=== PATIENT | female | born 1975 | race Caucasian/White ===

== ENCOUNTER → 2016-07-31 | Outpatient (CLI) | payer OTHER ==
--- NOTE | 2016-07-31 14:04 | REP ---
CT THORACIC SPINE WITHOUT CONTRAST: HISTORY: Spondylosis. There is no acute fracture or subluxation. There is no definite disc bulge or herniation. The spinal canal and the neural foramina are patent. The intervertebral discs are normal in height. Anterior osteophytes are present in the mid and lower thoracic spine. There is scoliosis of the upper thoracic spine convex to the left and mid and lower thoracic spine convex to the right. IMPRESSION: Degenerative change as described above. Signed by Phil Gupta MD 07/31/2016 02:20 P
--- NOTE | 2016-07-31 15:12 | REP ---
CT LUMBAR SPINE WITHOUT CONTRAST: HISTORY: Spondylosis. There is no disc bulge or herniation at the L1-2, L2-3, and L5-S1 levels. There is hypertrophy of the posterior articulating facets at the L5-S1 level. The nerves exit the neural foramina without compression. A diffuse disc bulge is present at the L3-4 level. There is minimal compression of the thecal sac. The L3 nerves exit the neural foramina without compression. A diffuse disc bulge is present at the L4-5 level. There is minimal compression of the thecal sac. The L4 nerves exit the neural foramina without compression. A 1 cm focus of decreased density is present in the right kidney. This most likely represents an angiomyolipoma or lipoma. IMPRESSION: 1. Diffuse disc bulges at the L3-4 and L4-5 levels with minimal thecal sac compression. 2. There is a 1 cm focus of decreased density in the right kidney that most likely represents an angiomyolipoma or lipoma. Ultrasound may be helpful for further evaluation. Signed by Phil Gupta MD 07/31/2016 03:17 P
--- NOTE | 2016-07-31 15:14 | REP ---
CT cervical spine without contrast, 07/31/2016: Indication: Cervical spondylosis. Comparison: None. Findings: There is mild reversal of cervical lordosis. There is no acute cervical spine fracture or prevertebral soft tissue swelling. Small subchondral cystic changes are seen in the tip of the dens, likely nonspecific arthritic changes. Moderate disc space narrowing is noted C6-7 with moderate anterior bridging marginal osteophytes. There is small diffuse bulging disc/osteophyte complex at this level. The AP dimension of thecal sac approximately 8.3 mm consistent with mild to moderate central canal stenosis. There is no significant foraminal narrowing. There are multiple subcentimeter nonspecific, anterior and posterior cervical chain nodes bilaterally. These are likely reactive in etiology. There is evidence of previous bilateral mastoidectomies. Small amount of soft tissue or granulation tissue seen in the posterior aspect of the left mastoidectomy site. Small amount of fluid. Impression: Mild reversal of cervical lordosis with moderate degenerative disc changes at C6-7. There is small diffuse bulging disc at this level with mild to moderate central canal stenosis. AP dimension of thecal sac is approximately of 8.3 mm AP dimension. No significant foraminal stenosis. No acute fracture or prevertebral soft tissue swelling. Reversal of cervical lordosis. Multiple sub cm nodes in the submandibular, anterior and posterior cervical chains, likely reactive. Clinical follow-up recommended. Previous bilateral mastoidectomies. Soft tissue is seen in the posterior aspect of the left mastoidectomy site. Signed by India Freeman MD 07/31/2016 07:07 P
== END | disposition home or self-care (01) ==
LOC: M RAD 13:10
PROVIDERS: ATTEND Neurological Surgery
DX: M47.892 Other spondylosis, cervical region (principal); M43.04 Spondylolysis, thoracic region; M47.896 Other spondylosis, lumbar region

== ENCOUNTER → 2016-08-09 | Outpatient (CLI) | payer OTHER ==
--- NOTE | 2016-08-09 18:16 | REP ---
Lumbar spine seven views including lateral views with flexion and extension. Comparison is the lumbar spine CT dated 07/31/2016. Vertebral body heights and alignment are normal. There is mild degenerative disc disease at L4-5 and L5 S1. There is no spondylolysis. There is no spondylolisthesis. There is no listhesis on the lateral flexion or extension views. The pedicles, facets and sacroiliac articulations are unremarkable. There are surgical clips in the pelvis bilaterally. Impression: Mild intervertebral degenerative disc disease at L4-5 and L5- S1. No listhesis. Signed by Tien Foote MD 08/09/2016 06:08 P
--- NOTE | 2016-08-09 18:19 | REP ---
Cervical spine seven views: Comparison is the MRI dated 07/31/2016. Vertebral body heights and alignment are normal. There is disc space narrowing and osteophytic formation at C 06/07, compatible with degenerative disc disease. Disc spaces are otherwise unremarkable. Prevertebral soft tissues are normal. Facets are normally aligned. There is no listhesis on the lateral views with flexion and extension. The odontoid view is unremarkable. There is no bony foraminal encroachment. Impression: C6-7 degenerative disc disease. Signed by Tien Foote MD 08/09/2016 06:10 P
== END | disposition home or self-care (01) ==
LOC: M RAD 14:04
PROVIDERS: ATTEND Neurological Surgery
DX: M47.892 Other spondylosis, cervical region (principal); M47.896 Other spondylosis, lumbar region; M50.923 Unspecified cervical disc disorder at C6-C7 level; M51.86 Other intervertebral disc disorders, lumbar region; M51.87 Other intervertebral disc disorders, lumbosacral region

== ENCOUNTER → 2016-09-15 | Outpatient (CLI) | payer OTHER | LOC: M LAB 11:59 | PROVIDERS: ATTEND Neurological Surgery | DX: E66.9 Obesity, unspecified (principal) ==

== ENCOUNTER → 2016-09-25 | Outpatient (CLI) | payer OTHER ==
--- NOTE | 2016-10-02 00:23 | ECWPNPC ---
PATIENT NAME: DERECK ROACH : 1975 GENDER: FEMALE VISIT DATE: 09/25/2016 DISCHARGE DATE: 09/25/16 1205 VISIT LOCKED DATE TIME: PHYSICIAN: JOSE ELIAS REYNAGA RESOURCE: JOSE ELIAS REYNAGA REASON FOR APPOINTMENT 1. NECK/BACK HISTORY OF PRESENT ILLNESS NEW PATIENT CONSULT: 41 Y/O FEMALE REFERRED BY FOR EVALUATION OF NECK AND LOW BACK PAIN.PAIN BEGAN APROXIMATLEY 1 1/2 YEARS AGO WITHOUT PRECIPITATING EVENT.RATING PAIN VAS 3/10.REPORTS DIFFICULTY SLEEPING AT NIGHT DUE TO PAIN.PAIN IS LOCATED IN NECK AND RADIATES INTO THORACIC SPINE.DENIES LUMBAR PAIN.DENIES RADICULAR SYMPTOMS.PAIN IS AGGREVATED BY LIGHT PRESSURE ON NECK.PAIN RELIEVED BY REST AND REPOSITION. WHEN DID YOUR PAIN FIRST START? . BRIEFLY DESCRIBE HOW YOUR PAIN STARTED? . HOW DOES YOUR PAIN CHANGE WITH TIME? . DOES YOUR PAIN AWAKEN YOU FROM SLEEP? . HOW MANY HOURS OF SLEEP DO YOU NORMALLY GET? . ANY DIAGNOSTIC TESTING? . FACILITY WHERE TESTS WERE DONE? ____. PAIN TREATMENT TREATMENT YES CANCER HAVE YOU EVER HAD ANY TYPE OF CANCER?NO NO. PAIN SCREENING: PATIENT HAS A COMPLAINT OF ACUTE OR CHRONIC PAIN YES FALL RISK SCREENING: SCREENING :NO FALLS IN THE PAST YEAR TRISTAN INVENTORY: QUESTIONNAIRE ASSESSEDTBD SCORE VALUE CALCULATED TBD CURRENT MEDICATIONS TAKING LOSARTAN POTASSIUM 100 MG TABLET 1 TABLET ORALLY ONCE A DAY TAKING VITAMIN D-3 5000 UNIT TABLET ORALLY MEDICATION LIST REVIEWED AND RECONCILED WITH THE PATIENT PAST MEDICAL HISTORY ESSENTIAL HTN CERVICAL SPONDYLOSIS LUMBAR SPONDYLOSIS SACROILITIS HEARING LOSS BILATERALLY WITH LEFT SIDED BAHA IMPLANT ALLERGIES N.K.D.A. SURGICAL HISTORY TUBAL LIGATION 2000 HYSTERECTOMY 2011 BAHA LEFT SIDED IMPLANT 2013 T&A FAMILY HISTORY 1 SON(S) , 1 DAUGHTER(S) . SOCIAL HISTORY GENERAL: TOBACCO USE ARE YOU A:NONSMOKER ALCOHOL SCREENING POINTS0 INTERPRETATIONNEGATIVE RECREATIONAL DRUG USE DRUG USE?NO CAFFEINE CAFFEINE USE?YES OCCASIONAL SODA OCCUPATION: HOUSEWIFE. DIET: REGULAR. EXERCISE: NONE. MARITAL STATUS: . OTHERS AT HOME: SPOUSE, CHILDREN. VOODOO: NONE AT THIS TIME. LEARNING BARRIERS / SPECIAL NEEDS HEARING IMPAIRED?YES : HAS LEFT SIDE BAHA IMPLANT TO FACILITATE HEARING VISION IMPAIRED?YES :CORRECTIVE LENSES LEARNING PREFERENCES?YES :HANDOUTS, DEMONSTRATION/VERBAL INSTRUCTION MEDICATION ABUSE NO PSYCHOLOGICAL HX TREATMENTNO PAIN CLINIC PFS, CLERGY, PUBLIC HEALTH REFERRALS PFS REFERRAL NEEDED?NO CLERGY REFERRAL NEEDED?NO PUBLIC HEALTH REFERRAL NEEDED?NO WAS THE PROVIDER NOTIFIED OF ANY PERTINENT INFO?NO PATIENT: ____. ADVANCED DIRECTIVES HEALTH CARE PROXY?NO POWER OF NUTS AND BOLTS ASSEMBLER?NO DOMESTIC VIOLENCE: NONE. HOSPITALIZATION/MAJOR DIAGNOSTIC PROCEDURE FOR ABOVE SURGERIES REVIEW OF SYSTEMS CONSTITUTIONAL: ANY CHANGE IN YOUR MEDICAL CONDITION? NO . CHILLS NO . FEVER NO . INFECTION: DO YOU HAVE NEW INFECTIONS? NO . DO YOU HAVE HISTORY OF MRSA? NO . MUSCULOSKELETAL: ANY NEW PATTERNS OF PAIN OR NUMBNESS? YES PT NOTES NECK AND MID-LOW BACK DISCOMFORT SINCE 03/04. DENIES TRAUMA. . SYTEMIC LUPUS NO . GASTROENTEROLOGY: ANY NEW CHANGE IN BOWEL CONTROL? NO . BARRETTS ESOPHAGUS NO . CIRRHOSIS NO . HEPATITIS NO . LIVER FAILURE NO . ACID REFLUX NO . UNEXPLAINED WEIGHT LOSS NO . GENITOURINARY: ANY NEW CHANGE IN BLADDER CONTROL? NO . IS THERE A CHANCE YOU COULD BE ? NO . HEMATOLOGY/LYMPH: DO YOU TAKE ANY BLOOD THINNERS? (FOR EXAMPLE- COUMADIN, PLAVIX, AGGRENOX, PLATEL, PRADAXA, OR XARELTO) NO . WHEN WAS YOUR LAST DOSE? DATE: TIME: . LOW PLATELET COUNT NO . SICKLE CELL DISEASE NO . VON WILLIEBRANDS NO . FACTOR V LEIDEN NO . THALLASEMIA NO . ANEMIA NO . EASY BRUISING NO . NEUROLOGY: HAVE YOU FALLEN IN THE PAST 6 MONTHS? NO . ANY NEW EXTREMITY NUMBNESS OR WEAKNESS? NO . HEAD INJURY NO . DEMENTIA NO . CEREBRAL PALSY NO . MULTIPLE SCLEROSIS NO . DIZZINESS NO . HEADACHE ADMITS, THROBBING, OCCIPITAL, INTERMITTENT . STROKES NO . VERTIGO NO . CARDIOLOGY: DO YOU HAVE A PACEMAKER OR DEFIBRILLATOR? NO . ANGINA NO . HEART ATTACK NO . HEART SURGERY NO . CONGESTIVE HEART FAILURE/FLUID OVERLOAD NO . CHEST PAIN NO . HIGH BLOOD PRESSURE ON MEDICATION(S) . IRREGULAR HEART BEAT NO . RESPIRATORY: HAVE YOU BEEN SICK IN THE PAST WEEK? NO . FEVER NO . FLU LIKE SYMPTOMS? NO . CPAP NO . BYPAP NO . ASTHMA NO . EMPHYSEMA NO . CHRONIC LUNG DISEASES NO . SHORTNESS OF BREATH ON EXERTION NO . DO YOU USE ANY TYPE OF TOBACCO (SMOKE, SMOKELESS, CHEW)? NO . COUGH NO . SNORING YES . INTEGUMENTARY: DO YOU HAVE ANY RASHES OR OPEN SORES? NO . ALLERGIC/IMMUNO: ARE YOU ALLERGIC TO SHELLFISH OR IV DYE? NO . ANY NEW ALLERGIES? NO . PSYCHIATRIC: DO YOU HAVE THOUGHTS OF HURTING YOURSELF OR SOMEONE ELSE? NO . ARE YOU ABUSED, NEGLECTED, OR IN AN UNSAFE ENVIRONMENT? NO . ENDOCRINOLOGY: ARE YOU DIABETIC? NO . THYROID DISORDER NO . OTHER: DO YOU NEED ANY PRESCRIPTIONS? NO . IF YES, PLEASE LIST: ____ . ANY NEW PROBLEMS WITH YOUR MEDICATIONS? NO . WHEN DID YOU LAST EAT? ____ . WHEN DID YOU LAST DRINK? ____ . WHAT DID YOU LAST DRINK? ____ . NAME OF PERSON DRIVING YOU HOME? ____ . DO YOU HAVE ANY OTHER QUESTIONS OR CONCERNS NO . REVIEWED BY: PROVIDER: JOSE ELIAS LOWE . VITAL SIGNS WT 211.6 LBS, HT 64 IN, BMI 36.32 INDEX, BP 157/84 MM HG, HR 58 /MIN, RR 16 /MIN, TEMP 97.0 F, OXYGEN SAT % 100%, NA INITIALS SC 11:06, REVIEWED BY: MLF. EXAMINATION GENERAL EXAMINATION: GENERAL APPEARANCE:NO ACUTE DISTRESS.. NECK:NO LYMPHADENOPATHY. LUNGS:LUNG SOUNDS ARE CLEAR/RESP. NON LABORED. HEART:S1/S2 NORMAL RATE /RHYTHM. ABDOMEN:SOFT, NON-TENDER, NO ORGANOMEGALY, BOWEL SOUNDS ARE NORMAL. CERVICAL SPINE/NECK: RANGE OF MOTION OF NECK:LIMITED IN ALL DIRECTIONS.. SENSATIONS:NORMAL BILATERALLY. MOTOR STRENGTH:NORMAL. VERTEBRAL SPINE TENDERNESS:TENDERNESS WITH PALPATION OF CERVICAL AXIS AND CERVICAL PARASPINALS.. MYOFASCIAL TRIGGER POINTS:BILAT. TRAPEZIUS.. 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 IT IS NOT A COPY OF THE [employer] [facility] [place] PROGRESS NOTE. VIRIDIANA
== END ==
LOC: M PAIN 11:20
PROVIDERS: ATTEND Nurse Practitioner Family
DX: G89.29 Other chronic pain (principal); M47.812 Spondylosis without myelopathy or radiculopathy, cervical region; M79.1 Myalgia; I10 Essential (primary) hypertension; R06.83 Snoring; Z79.899 Other long term (current) drug therapy; Z96.21 Cochlear implant status

== ENCOUNTER → 2016-11-20 | Outpatient (CLI) | payer OTHER ==
--- NOTE | 2016-12-04 00:53 | ECWPNPC ---
PATIENT NAME: DERECK ROACH : 1975 GENDER: FEMALE VISIT DATE: 11/20/2016 DISCHARGE DATE: 11/20/16 1107 VISIT LOCKED DATE TIME: PHYSICIAN: JOSE ELIAS REYNAGA RESOURCE: JOS EELIAS REYNAGA REASON FOR APPOINTMENT 1. NECK AND BACK HISTORY OF PRESENT ILLNESS HISTORY OF PRESENT ILLNESS: HERE FOR F/U AND MANAGEMENT OF CHRONIC NECK AND LBP.ATTENDED PT BUT FINDS IT INEFFECTIVE.DISCUSSED MEDICATION AND TREATMENT OPTIONS.DESCRIBES PAIN INTERMITTENT.RATING PAIN VAS 2/10.HAVING SOME ISSUES WITH BILATERAL LEG SWELLING AND EDEMA.FOLLOWING WITH PRIMARY . PAIN THE PATIENT DESCRIBES THE PAIN... FALL RISK SCREENING: SCREENING :NO FALLS IN THE PAST YEAR CURRENT MEDICATIONS TAKING LOSARTAN POTASSIUM 100 MG TABLET 1 TABLET ORALLY ONCE A DAY TAKING VITAMIN D-3 5000 UNIT TABLET ORALLY MEDICATION LIST REVIEWED AND RECONCILED WITH THE PATIENT PAST MEDICAL HISTORY ESSENTIAL HTN CERVICAL SPONDYLOSIS LUMBAR SPONDYLOSIS SACROILITIS HEARING LOSS BILATERALLY WITH LEFT SIDED BAHA IMPLANT ALLERGIES N.K.D.A. REVIEW OF SYSTEMS CONSTITUTIONAL: ANY CHANGE IN YOUR MEDICAL CONDITION? NO . CHILLS NO . FEVER NO . INFECTION: DO YOU HAVE NEW INFECTIONS? NO . DO YOU HAVE HISTORY OF MRSA? NO . MUSCULOSKELETAL: ANY NEW PATTERNS OF PAIN OR NUMBNESS? NO . GASTROENTEROLOGY: ANY NEW CHANGE IN BOWEL CONTROL? NO . GENITOURINARY: ANY NEW CHANGE IN BLADDER CONTROL? NO . IS THERE A CHANCE YOU COULD BE ? NO . HEMATOLOGY/LYMPH: DO YOU TAKE ANY BLOOD THINNERS? (FOR EXAMPLE- COUMADIN, PLAVIX, AGGRENOX, PLATEL, PRADAXA, OR XARELTO) NO . WHEN WAS YOUR LAST DOSE? DATE: TIME: . NEUROLOGY: HAVE YOU FALLEN IN THE PAST 6 MONTHS? NO . ANY NEW EXTREMITY NUMBNESS OR WEAKNESS? NO . CARDIOLOGY: DO YOU HAVE A PACEMAKER OR DEFIBRILLATOR? NO . RESPIRATORY: HAVE YOU BEEN SICK IN THE PAST WEEK? NO . FEVER NO . FLU LIKE SYMPTOMS? NO . COUGH NO . INTEGUMENTARY: DO YOU HAVE ANY RASHES OR OPEN SORES? NO . ALLERGIC/IMMUNO: ARE YOU ALLERGIC TO SHELLFISH OR IV DYE? NO . ANY NEW ALLERGIES? NO . PSYCHIATRIC: DO YOU HAVE THOUGHTS OF HURTING YOURSELF OR SOMEONE ELSE? NO . ARE YOU ABUSED, NEGLECTED, OR IN AN UNSAFE ENVIRONMENT? NO . ENDOCRINOLOGY: ARE YOU DIABETIC? NO . OTHER: DO YOU NEED ANY PRESCRIPTIONS? NO . IF YES, PLEASE LIST: ____ . ANY NEW PROBLEMS WITH YOUR MEDICATIONS? NO . WHEN DID YOU LAST EAT? ____ . WHEN DID YOU LAST DRINK? ____ . WHAT DID YOU LAST DRINK? ____ . NAME OF PERSON DRIVING YOU HOME? ____ . DO YOU HAVE ANY OTHER QUESTIONS OR CONCERNS DOESN'T FEEL PT IS HELPING HER MUCH . REVIEWED BY: PROVIDER: JOSE ELIAS LOWE . VITAL SIGNS WT 212 LBS, HT 64 IN, BMI 36.39 INDEX, BP 140/73 MM HG, HR 68 /MIN, RR 16 /MIN, TEMP 98.5 F, OXYGEN SAT % 98%, NA INITIALS SC 10:15, REVIEWED BY: AD. EXAMINATION GENERAL EXAMINATION: GENERAL APPEARANCE:NO ACUTE DISTRESS.. NECK:NO LYMPHADENOPATHY. LUNGS:LUNG SOUNDS ARE CLEAR/RESP. NON LABORED. HEART:S1/S2 NORMAL RATE /RHYTHM. ABDOMEN:SOFT, NON-TENDER, NO ORGANOMEGALY, BOWEL SOUNDS ARE NORMAL. CERVICAL SPINE/NECK: RANGE OF MOTION OF NECK:LIMITED IN ALL DIRECTIONS.. SENSATIONS:NORMAL BILATERALLY. MOTOR STRENGTH:NORMAL. VERTEBRAL SPINE TENDERNESS:TENDERNESS WITH PALPATION OF CERVICAL AXIS AND CERVICAL PARASPINALS.. MYOFASCIAL TRIGGER POINTS:BILAT. TRAPEZIUS.. ASSESSMENTS SPONDYLOSIS OF CERVICAL REGION WITHOUT MYELOPATHY OR RADICULOPATHY - M47.812 (PRIMARY) MYALGIA - M79.1 FACET ARTHROPATHY, LUMBOSACRAL - M12.88 TREATMENT SPONDYLOSIS OF CERVICAL REGION WITHOUT MYELOPATHY OR RADICULOPATHY START TRAMADOL HCL TABLET, 50 MG, 1/2, ORALLY, BEFORE BEDTIME, 30 DAY(S), 15, REFILLS 1 START IBUPROFEN TABLET, 600 MG, 1 TABLET WITH FOOD OR MILK, ORALLY, BEFORE BEDTIME, 30 DAY(S), 30, REFILLS 1 NOTES: PATIENT WAS ADVISED TO START A WALKING PROGRAM TO STRENGTHEN LUMBAR PARASPINAL MUSCLES AND IMPROVE MOBILITY. THEY WERE ADVISED THAT THIS WILL IMPROVE WEIGHT LOSS AND ALSO DEPRESSION/FIBROMYALGIA SYMPTOMS. ADVISED TO WALK 10 MINUTES EVERY OTHER DAY ON A FLAT SURFACE. EMPHASIZED THE IMPORTANCE OF DOING THIS CONSISTANTLY AND NOT SPORATICALLY TO AVOID INJURY. STRONG ADVISED NOT TO DO MORE THAN 10 MINUTES EVERY OTHER DAY FOR THE FIRST 4 WEEKS. PREVENTIVE MEDICINE PAIN CLINIC TEACHING: MEDICATIONS PRINTED INFORMATION ON TRAMADOL AND IBUPROFEN GIVEN TO AND REVIEWED WITH PT AND SHE VERBALIZED UNDERSTANDING. AD. PROCEDURE CODES FA211 ESTABILISHED PATIENT [facility] CHARGE DISPOSITION & COMMUNICATION FOLLOW UP 6 WEEKS ELECTRONICALLY SIGNED BY CHRISSY VELASQUEZ ON 12/03/2016 AT 04:51 PM EDT DISCLAIMER : THIS IS A VISIT SUMMARY EXTRACTED FROM THE [employer] CHART. IT IS NOT A COPY OF THE [employer] PROGRESS NOTE. VIRIDIANA
== END ==
LOC: M PAIN 10:00
PROVIDERS: ATTEND Nurse Practitioner Family
DX: G89.29 Other chronic pain (principal); M47.812 Spondylosis without myelopathy or radiculopathy, cervical region; M79.1 Myalgia; M12.88 Other specific arthropathies, not elsewhere classified, other specified site; I10 Essential (primary) hypertension; H91.90 Unspecified hearing loss, unspecified ear; Z79.899 Other long term (current) drug therapy; Z96.21 Cochlear implant status

== ENCOUNTER → 2017-01-01 | Outpatient (CLI) | payer OTHER ==
--- NOTE | 2017-01-02 02:01 | ECWPNPC ---
PATIENT NAME: DERECK ROACH : 1975 GENDER: FEMALE VISIT DATE: 01/01/2017 DISCHARGE DATE: 01/01/17 1026 VISIT LOCKED DATE TIME: PHYSICIAN: JOSE ELIAS REYNAGA RESOURCE: JOSE ELIAS REYNAGA REASON FOR APPOINTMENT 1. FOLLOWUP HISTORY OF PRESENT ILLNESS HISTORY OF PRESENT ILLNESS: HER FOR F/U OF CHRONIC LOW BACK AND NECK PAIN. RATING PAIN VAS 1/10.OVERALL DOING BETTER WITH PAIN.TRIED TRAMADOL AND THIS WAS NOT EFFECTIVE.TRIALED PT BUT THAT WAS INEFFECTIVE.CURRENTLY ON NAPROXEN 500MG DAILY AND HAD ANTIBIOTICS FOR BILATERAL LOWER EXTREMITY CELLULITIS.DOING WALKING PROGRAM.NOT TAKING IBUPROFEN.FOLLOWING CLOSELY WITH PRIMARY CARE FOR NEW ONST OF LOWER EXTREMITY SWELLING. PAIN THE PATIENT DESCRIBES THE PAIN... FALL RISK SCREENING: SCREENING :NO FALLS IN THE PAST YEAR CURRENT MEDICATIONS TAKING LOSARTAN POTASSIUM 100 MG TABLET 1 TABLET ORALLY ONCE A DAY TAKING VITAMIN D-3 5000 UNIT TABLET ORALLY DAILY TAKING TRAMADOL HCL 50 MG TABLET 1/2 ORALLY BEFORE BEDTIME TAKING IBUPROFEN 600 MG TABLET 1 TABLET WITH FOOD OR MILK ORALLY BEFORE BEDTIME MEDICATION LIST REVIEWED AND RECONCILED WITH THE PATIENT PAST MEDICAL HISTORY ESSENTIAL HTN CERVICAL SPONDYLOSIS LUMBAR SPONDYLOSIS SACROILITIS HEARING LOSS BILATERALLY WITH LEFT SIDED BAHA IMPLANT ALLERGIES N.K.D.A. SOCIAL HISTORY GENERAL: TOBACCO USE ARE YOU A:NONSMOKER ALCOHOL SCREENING DID YOU HAVE A DRINK CONTAINING ALCOHOL IN THE PAST YEAR?NO POINTS0 INTERPRETATIONNEGATIVE RECREATIONAL DRUG USE DRUG USE?NO CAFFEINE CAFFEINE USE?YES OCCASIONAL SODA OCCUPATION: HOUSEWIFE. DIET: REGULAR. EXERCISE: NONE. MARITAL STATUS: . OTHERS AT HOME: SPOUSE, CHILDREN. VOODOO NONE AT THIS TIME. LEARNING BARRIERS / SPECIAL NEEDS HEARING IMPAIRED?YES : HAS LEFT SIDE BAHA IMPLANT TO FACILITATE HEARING VISION IMPAIRED?YES :CORRECTIVE LENSES LEARNING PREFERENCES?YES :HANDOUTS, DEMONSTRATION/VERBAL INSTRUCTION MEDICATION ABUSE NO PSYCHOLOGICAL HX TREATMENT NO . PAIN CLINIC PFS, CLERGY, PUBLIC HEALTH REFERRALS PFS REFERRAL NEEDED?NO CLERGY REFERRAL NEEDED?NO PUBLIC HEALTH REFERRAL NEEDED?NO WAS THE PROVIDER NOTIFIED OF ANY PERTINENT INFO?NO HAS THE PATIENT BEEN EDUCATED REGARDING HIS/HER PLAN OF CARE?YES HAS THE PATIENT BEEN EDUCATED REGARDING PAIN, THE RISK FOR PAIN, THE IMPORTANCE OF EFFECTIVE PAIN MANAGEMENT, AND THE PAIN ASSESSMENT PROCESS?YES PATIENT: ____. ADVANCE DIRECTIVES HEALTH CARE PROXY? NO, POWER OF PROPERTY CLAIMS MANAGER? NO. DOMESTIC VIOLENCE NONE. REVIEW OF SYSTEMS CONSTITUTIONAL: ANY CHANGE IN YOUR MEDICAL CONDITION? NO . CHILLS NO . FEVER NO . INFECTION: DO YOU HAVE NEW INFECTIONS? NO . DO YOU HAVE HISTORY OF MRSA? NO . MUSCULOSKELETAL: ANY NEW PATTERNS OF PAIN OR NUMBNESS? NO . GASTROENTEROLOGY: ANY NEW CHANGE IN BOWEL CONTROL? NO . GENITOURINARY: ANY NEW CHANGE IN BLADDER CONTROL? NO . IS THERE A CHANCE YOU COULD BE ? NO . HEMATOLOGY/LYMPH: DO YOU TAKE ANY BLOOD THINNERS? (FOR EXAMPLE- COUMADIN, PLAVIX, AGGRENOX, PLATEL, PRADAXA, OR XARELTO) NO . WHEN WAS YOUR LAST DOSE? DATE: TIME: . NEUROLOGY: HAVE YOU FALLEN IN THE PAST 6 MONTHS? NO . ANY NEW EXTREMITY NUMBNESS OR WEAKNESS? NO . CARDIOLOGY: DO YOU HAVE A PACEMAKER OR DEFIBRILLATOR? NO . RESPIRATORY: HAVE YOU BEEN SICK IN THE PAST WEEK? NO . FEVER NO . FLU LIKE SYMPTOMS? NO . COUGH NO . INTEGUMENTARY: DO YOU HAVE ANY RASHES OR OPEN SORES? NO . ALLERGIC/IMMUNO: ARE YOU ALLERGIC TO SHELLFISH OR IV DYE? NO . ANY NEW ALLERGIES? NO . PSYCHIATRIC: DO YOU HAVE THOUGHTS OF HURTING YOURSELF OR SOMEONE ELSE? NO . ARE YOU ABUSED, NEGLECTED, OR IN AN UNSAFE ENVIRONMENT? NO . ENDOCRINOLOGY: ARE YOU DIABETIC? NO . OTHER: DO YOU NEED ANY PRESCRIPTIONS? NO . IF YES, PLEASE LIST: ____ . ANY NEW PROBLEMS WITH YOUR MEDICATIONS? NO . WHEN DID YOU LAST EAT? ____ . WHEN DID YOU LAST DRINK? ____ . WHAT DID YOU LAST DRINK? ____ . NAME OF PERSON DRIVING YOU HOME? ____ . DO YOU HAVE ANY OTHER QUESTIONS OR CONCERNS NO . REVIEWED BY: PROVIDER: JOSE ELIAS LOWE . VITAL SIGNS WT 209.0 LBS, HT 64 IN, BMI 35.87 INDEX, BP 152/87 MM HG, HR 59 /MIN, RR 16 /MIN, TEMP 98.3 F, OXYGEN SAT % 99%, NA INITIALS TL 1005, REVIEWED BY: ASHLEY. EXAMINATION GENERAL EXAMINATION: GENERAL APPEARANCE:NO ACUTE DISTRESS.. NECK:NO LYMPHADENOPATHY. LUNGS:LUNG SOUNDS ARE CLEAR/RESP. NON LABORED. HEART:S1/S2 NORMAL RATE /RHYTHM. ABDOMEN:SOFT, NON-TENDER, NO ORGANOMEGALY, BOWEL SOUNDS ARE NORMAL. ASSESSMENTS SPONDYLOSIS OF CERVICAL REGION WITHOUT MYELOPATHY OR RADICULOPATHY - M47.812 (PRIMARY) MYALGIA - M79.1 FACET ARTHROPATHY, LUMBOSACRAL - M12.88 TREATMENT SPONDYLOSIS OF CERVICAL REGION WITHOUT MYELOPATHY OR RADICULOPATHY NOTES: PATIENT WAS ADVISED TO START A WALKING PROGRAM TO STRENGTHEN LUMBAR PARASPINAL MUSCLES AND IMPROVE MOBILITY. THEY WERE ADVISED THAT THIS WILL IMPROVE WEIGHT LOSS AND ALSO DEPRESSION/FIBROMYALGIA SYMPTOMS. ADVISED TO WALK 10 MINUTES EVERY OTHER DAY ON A FLAT SURFACE. EMPHASIZED THE IMPORTANCE OF DOING THIS CONSISTANTLY AND NOT SPORATICALLY TO AVOID INJURY. STRONG ADVISED NOT TO DO MORE THAN 10 MINUTES EVERY OTHER DSY FOR THE FIRST 4 WEEKS. PROCEDURE CODES FA211 ESTABILISHED PATIENT [facility] CHARGE DISPOSITION & COMMUNICATION FOLLOW UP PT WILL CALL ELECTRONICALLY SIGNED BY CHRISSY VELASQUEZ ON 01/01/2017 AT 03:21 PM EDT DISCLAIMER : THIS IS A VISIT SUMMARY EXTRACTED FROM THE [employer] CHART. IT IS NOT A COPY OF THE [employer] PROGRESS NOTE. VIRIDIANA
== END ==
LOC: M PAIN 10:00
PROVIDERS: ATTEND Nurse Practitioner Family
DX: G89.29 Other chronic pain (principal); M47.812 Spondylosis without myelopathy or radiculopathy, cervical region; M79.1 Myalgia; M12.88 Other specific arthropathies, not elsewhere classified, other specified site; I10 Essential (primary) hypertension; H91.93 Unspecified hearing loss, bilateral; M46.1 Sacroiliitis, not elsewhere classified; M47.816 Spondylosis without myelopathy or radiculopathy, lumbar region; Z79.891 Long term (current) use of opiate analgesic; Z79.899 Other long term (current) drug therapy

== ENCOUNTER → 2019-05-19 | Outpatient (REF) | payer OTHER | LOC: M LAB REF 15:24 | PROVIDERS: ATTEND Orthopaedic Surgery | DX: D48.9 Neoplasm of uncertain behavior, unspecified (principal) ==

== ENCOUNTER 2023-12-15 07:32 | Day surgery (SDC) | payer OTHER ==
[~2023-12-15] VITALS: Ht 162.6 cm; Wt 97.9 kg
[~2023-12-15 07:32] MED LIST: AMLO1TAB24 PO; FURO40TA2 PO; LOSA100T46 PO; SIMV10TA21 PO
[2023-12-15] MEDS ORDERED: LR 1,000 ML IV SCH ×2 (08:35→10:50)
[2023-12-15] MEDS: ceFAZolin SOD 2 GM in IV 1 EA IV ONE (08:38)
[2023-12-15] MEDS: BACITRACIN OINTMENT 30GM TUBE As Ordered ONE (08:42)
[2023-12-15] MEDS ORDERED: dexmedeTOMIDine (4MCG/ML)200MCG/50ML BTL (PRECEDEX) As Ordered ONE (08:49)
[2023-12-15] MEDS ORDERED: propofoL 200 MG/20 ML VIAL As Ordered ONE (08:49)
[2023-12-15] MEDS ORDERED: MIDAZOLAM INJ 2MG/2ML VIAL As Ordered ONE (08:49)
[2023-12-15] MEDS ORDERED: LIDOCAINE 2% 100MG/5ML SDV (FOR ANES.) As Ordered ONE (08:49)
[2023-12-15] MEDS ORDERED: fentaNYL 100 MCG/2 ML INJECTION As Ordered ONE (08:49)
[2023-12-15] MEDS ORDERED: ONDANSETRON 4MG 2ML VIAL As Ordered ONE (08:49)
[2023-12-15] MEDS ORDERED: ePHEDrine SULFATE 25 MG/5 ML(5MG/ML) SYRINGE As Ordered ONE (10:08)
[2023-12-15] MEDS ORDERED: ACETAMINOPHEN 1000MG 100ML IV BAG As Ordered ONE (10:10)
[2023-12-15] MEDS: POVIDONE-IODINE 5% OPHTH PREP SOL 30ML As Ordered ONE (10:13)
[2023-12-15] MEDS ORDERED: PHENYLephrine 500MCG 5ML (100MCG/ML) SYRINGE As Ordered ONE (10:25)
[2023-12-15] MEDS: GENTAMICIN SULF 80MG/2ML VIAL As Ordered ONE (10:29)
[2023-12-15] MEDS: LIDOCAINE 2% W/EPINEPHRINE 20ML VIAL **PRES FREE As Ordered ONE (10:38)
[2023-12-15] MEDS ORDERED: oxyCODONE 5MG TAB PO PRN (10:50)
[2023-12-15] MEDS ORDERED: fentaNYL 100 MCG/2 ML INJECTION IV PRN (10:50)
[2023-12-15] MEDS ORDERED: ONDANSETRON 4MG 2ML VIAL IV PRN (10:50)
[2023-12-15] MEDS ORDERED: MORPHINE 2 MG/ML 1ML VIAL IV PRN (10:50)
[2023-12-15] MEDS: LABETALOL 100MG/20ML VIAL IV PRN (11:07)
[2023-12-15] MEDS ORDERED: AUGM500T34 PO (11:16)
[2023-12-15] MEDS ORDERED: hydrALAZINE 20MG/ML 1ML VIAL As Ordered ONE (11:27)
[2023-12-15] MEDS: hydrALAZINE 20MG/ML 1ML VIAL IV PRN (11:29)
[2023-12-15 11:55] VITALS: BP 129/62; TEMP 97.6; O2SAT 99
== END 2023-12-15 12:30 | disposition home or self-care (01) ==
LOC: M SDC 07:32
PROVIDERS: ATTEND Plastic Surgery Surgery of the Hand
DX: D22.39 Melanocytic nevi of other parts of face (principal); L72.0 Epidermal cyst; I10 Essential (primary) hypertension; E78.00 Pure hypercholesterolemia, unspecified; Z79.899 Other long term (current) drug therapy; Z90.710 Acquired absence of both cervix and uterus
CPT/HCPCS: 11444; 12052; 88307; J0131; J0360; J0690; J1580; J1920; J2250; J2371; J2405; J3010